=== PATIENT | male | born 1940 | race Caucasian/White ===

== ENCOUNTER 2022-09-12 04:29 | Inpatient (IN) ==
[2022-09-12] MEDS ORDERED: FUROSEMIDE 20 MG/2 ML VIAL IV ONE (04:35)
[2022-09-12] MEDS ORDERED: FUROSEMIDE 40 MG/4 ML VIAL IV ONE (04:39)
[2022-09-12] MEDS ORDERED: NITROGLYCERIN 0.4 MG TAB.SUBL SL PRN (04:39)
--- NOTE | 2022-09-12 04:46 | Emergency Department Note ---
HPI General Chief complaint: Shortness of Breath/Dyspnea Stated complaint: shortness of breath Time Seen by Provider: 09/12/22 04:32 Source: patient Mode of arrival: wheelchair Limitations: no limitations History of Present Illness HPI Narrative: Narrative: 82-year-old male with a mix of COPD and CHF on home O2 reports having 2 dial up his oxygen much more than usual (he is usually on 3 L he had to go up to 5 home. He also has hand-held inhalers and a nebulizer machine but his recreation attendant says they have not been helping him much he states on the other hand that the only time that he can catch his breath. He denies any chest pain fever sweats chills cough but his recreation attendant just came back from traveling [place] and had a respiratory infection. Related Data Home Medications Medication Instructions Recorded Confirmed cholecalciferol (vitamin D3) 25 1,000 unit PO DAILY 11/17/16 09/07/22 mcg (1,000 unit) tablet folic acid 0.8 mg capsule 0.8 mg PO QDAY 11/17/16 09/07/22 multivit with min-folic 1 each PO QDAY 11/17/16 09/07/22 acid-lutein 200 mcg-137.5 mcg chewable tablet warfarin 2 mg tablet 3 mg PO QDAY 11/17/16 09/07/22 carboxymethylcellulose sodium 0.5 1 drp ophthalmic (eye) TID 01/29/17 09/07/22 % eye drops in a dropperette polyethylene glycol 3350 17 17 g PO QAM 01/29/17 09/07/22 gram/dose oral powder warfarin 1 mg tablet 2 mg PO DAILY 02/04/17 09/07/22 albuterol sulfate 2.5 mg/3 mL 2.5 mg inhalation BID PRN COPD 05/12/18 09/07/22 (0.083 %) solution for nebulization atorvastatin 80 mg tablet 40 mg PO QDAY 09/15/18 09/07/22 carvedilol 6.25 mg tablet 6.25 mg PO BID 09/11/19 09/07/22 furosemide 20 mg tablet 20 mg PO QAM 09/11/19 09/07/22 lisinopril 10 mg tablet 5 mg PO QDAY 09/11/19 09/07/22 spironolactone 25 mg tablet 25 mg PO QDAY 01/25/22 09/07/22 Previous Rx's Medication Instructions Recorded tiotropium bromide 18 mcg capsule 1 cap inhalation QDAY COPD #90 07/18/21 with inhalation device (Spiriva puffs with HandiHaler) budesonide-formoterol HFA 160 2 puff inhalation BID #10.2 ea 02/09/22 mcg-4.5 mcg/actuation aerosol inhaler CPT vest airway clearance system #1 ea 05/04/22 and all supplies Allergies Allergy/AdvReac Type Severity Reaction Status Date / Time fluticasone Allergy Unknown Verified 09/07/22 23:39 levofloxacin Allergy Unknown Verified 09/07/22 23:39 Review of Systems ROS ROS Narrative: Narrative: All systems ED: reviewed and negative except as stated. [facility] Narrative Patient History Narrative: Narrative: Medical/Surgical/Family History All Active Problems (Updated 09/08/22 @ 03:00 by Darryl Da Silva DO) Gastroenteritis (Acute) Generalized abdominal fullness (Acute) Difficulty clearing secretions (Chronic) Slow transit constipation (Acute) Unexplained weight loss (Acute) Change in bowel habits (Acute) Chronic abdominal pain (Acute) Vitreoretinal tuft (Chronic) Pseudophakia (Chronic) Other cerebrovascular disease (Chronic) Onychomycosis (Chronic) Mild cognitive impairment (Chronic) Fatigue (Chronic) Dry eyes (Chronic) Expressive language impairment (Chronic) Elevated PSA (Chronic) Actinic keratitis (Chronic) Corneal abrasion, left (Chronic) Ventricular trigeminy (Chronic) Dehydration (Chronic) Hypoxemia (Chronic) Cardiomyopathy, dilated, nonischemic (Chronic) Diabetes mellitus (Chronic) CHF NYHA class III (Chronic) Hearing loss (Chronic) Benign tumor of prostate (Chronic) Abdominal aortic aneurysm (Chronic) Chronic obstructive lung disease (Chronic) Allergic rhinitis (Chronic) Premature ventricular beats (Chronic) Oxygen dependent (Chronic) Edema of lower extremity (Chronic) Dyspnea (Chronic) Heart failure (Chronic) Ischemic stroke (Chronic) Hypotension (Chronic) CVA (cerebral vascular accident) (Chronic) Acute exacerbation of chronic obstructive airways disease (Chronic) Medical History Abdominal aortic aneurysm Actinic keratitis Allergic rhinitis Benign tumor of prostate Cardiomyopathy, dilated, nonischemic CHF NYHA class III Chronic obstructive lung disease COPD (chronic obstructive pulmonary disease) Corneal abrasion, left CVA (cerebral vascular accident) Diabetes mellitus Difficulty clearing secretions Dry eyes Dyspnea at rest Edema of lower extremity Elevated PSA Expressive language impairment Fatigue Hearing loss Heart failure Hypotension Hypoxemia Ischemic stroke Mild cognitive impairment Onychomycosis Other cerebrovascular disease Oxygen dependent Premature ventricular beats Pseudophakia Vitreoretinal tuft Surgical History History of colonoscopy (05/10/07) History of hand surgery Family History Other No pertinent family history Social History Smoking Status: Former smoker Alcohol Intake Frequency: does not drink Substance Use: does not use Exam Narrative Narrative: Narrative: General: Moderate distress secondary to dyspnea. Patient has dilated lungs and is only able to expand like 10% of his lung capacity by deep inspiration. Skin pale but well perfused. Pulmonary: Rales heard bilaterally on both sides with little air exchange no wheezing. General Limitations: no limitations Course Course Course Narrative: Patient's first blood pressure on the monitor was an erroneous reading something like 210/110 and we originally treated him with a nitro sublingual, as a second pressure came back at 120/72 (too soon to have been a result of the nitro). He was given a DuoNeb treatment, and he stated he felt like he was moving more air. VBG showed CO2 retention of 74.9 with a bicarb 37.2 and a base excess of 11, on 4 liters O2. Patient's chest x-ray reveals a chronically hyperinflated lungs, without pulmonary edema. His EKG showed normal sinus rhythm with a rate of 86 and a left bundle branch block unchanged from previous EKGs. His troponin was 0.02, and BNP Pt will be admitted for COPD exacerbation with CO2 retention. Vital Signs Vital signs: Vital Signs Temperature 97.8 F 09/12/22 04:31 Pulse Rate 97 H 09/12/22 04:31 Respiratory Rate 20 09/12/22 04:31 Blood Pressure 132/105 09/12/22 04:31 Pulse Oximetry (%) 99 09/12/22 04:31 Oxygen Delivery Method Nasal Cannula 09/12/22 04:31 Oxygen Flow Rate (L/min) 4 09/12/22 04:31 Temperature 97.8 F 09/12/22 04:31 Pulse Rate 87 09/12/22 05:18 Respiratory Rate 17 09/12/22 05:18 Blood Pressure 117/76 09/12/22 05:18 Pulse Oximetry (%) 100 09/12/22 05:18 Oxygen Delivery Method Nasal Cannula 09/12/22 04:31 Oxygen Flow Rate (L/min) 4 09/12/22 04:31 MDM MDM Narrative Medical decision making narrative: Narrative: Lab Data 09/12/22 04:45 09/12/22 04:44 Labs: Lab Results 09/12/22 09/12/22 09/12/22 Range/Units 04:44 04:45 04:50 POC Hct 36.0 L (41-55) POC PT (11.9-14.5) POC INR (0.8-1.2) POC VBG pH 7.30 L (7.32-7.42) POC VBG pCO2 at Temp 74.9 H* (41-51) POC VBG pO2 26 (25-40) POC VBG HCO3 37.2 H (24-28) POC VBG Total CO2 39.0 H (25-29) POC Venous O2 Sat 38.0 L (40-70) POC VBG Base Excess 11.0 H* (-2-2) VBG Lactic Acid 0.6 (0.5-2) POC Sodium 130 L (133-145) POC Potassium 4.5 (3.3-5.1) POC Chloride 88 L (96-108) POC Total CO2 35.0 H (22-30) POC Anion Gap 12.0 (8.0-16.0) POC BUN 15 (6-20) POC Creatinine 0.9 (0.6-1.2) POC Glucose 104 (70-105) POC WB Ioniz Calcium 1.19 (1.16-1.32) POC Troponin I 0.02 (0.00-0.08) 09/12/22 Range/Units 04:55 POC Hct (41-55) POC PT 23.7 H (11.9-14.5) POC INR 2.0 H (0.8-1.2) POC VBG pH (7.32-7.42) POC VBG pCO2 at Temp (41-51) POC VBG pO2 (25-40) POC VBG HCO3 (24-28) POC VBG Total CO2 (25-29) POC Venous O2 Sat (40-70) POC VBG Base Excess (-2-2) VBG Lactic Acid (0.5-2) POC Sodium (133-145) POC Potassium (3.3-5.1) POC Chloride (96-108) POC Total CO2 (22-30) POC Anion Gap (8.0-16.0) POC BUN (6-20) POC Creatinine (0.6-1.2) POC Glucose (70-105) POC WB Ioniz Calcium (1.16-1.32) POC Troponin I (0.00-0.08) Discharge Plan Patient/Caregiver Discharge Instructions Pt seen by FLAG CAR DRIVER/PA only: No Patient Disposition: Xfer As Inpt ([facility]) Follow up with: Teddy Joya ARNP [Primary Care Provider] - Prescriptions: No Action budesonide-formoterol 160-4.5 mcg/actuation HFA aerosol inhaler 2 puff inhalation BID Qty: 10.2 5RF (DME) CPT vest airway clearance system and all supplies See Rx Instructions .Route .MEDSUPPLY Qty: 1 0RF Rx Instructions: Please provide CPT vest and all required equipment and supplies. Patient needs to use vest at least twice a day for 10 minutes to 30 minutes at a time. Frequencies set at 6-20. Chest circumference was 41 inches. Please provide appropriate sized vest carboxymethylcellulose sodium 0.5 % dropperette 1 drp OPHTHALMIC TID polyethylene glycol 3350 17 gram/dose powder 17 g PO QAM albuterol sulfate 2.5 mg /3 mL (0.083 %) solution for nebulization 2.5 mg INHALATION BID PRN (Reason: COPD) spironolactone 25 mg tablet 25 mg PO QDAY furosemide 20 mg tablet 20 mg PO QAM carvedilol 6.25 mg tablet 6.25 mg PO BID Spiriva with HandiHaler 18 mcg capsule, w/inhalation device 1 cap inhalation QDAY Qty: 90 3RF Rx Instructions: puncture 1 cap using device; one dose = 2 inhalations warfarin 2 MG tablet 3 mg PO QDAY Rx Instructions: 2 mg -, Wednesday and Wednesday. 3mg Wednesday and Wednesday cholecalciferol (vitamin D3) 1,000 UNIT tablet 1,000 unit PO DAILY [id number] acid-lutein 1 EACH tablet,chewable 1 each PO QDAY folic acid 0.8 MG capsule 0.8 mg PO QDAY warfarin 1 MG tablet 2 mg PO DAILY Patient Comments: "2 mg wed,wed. 1 rest of the week" Rx Instructions: 2 mg -, Wednesday and Wednesday. 3mg Wednesday and Wednesday atorvastatin 80 mg tablet 40 mg PO QDAY lisinopril 10 mg tablet 5 mg PO QDAY
[2022-09-12 04:49] LABS: POC Calcium, Ionized 1.19 (1.16-1.32); POC Creatinine 0.9 (0.6-1.2); POC Potassium 4.5 (3.3-5.1)
[2022-09-12] MEDS ORDERED: IPRATROPIUM/ALBUTEROL 3 ML AMPUL.NEB NEB ONE (04:53)
[2022-09-12 05:01] LABS: POC Pro Time 23.7 (11.9-14.5)
[2022-09-12 05:24] LABS: Basophils # (Auto) 0.06 K/mcL (0.00-0.30); Basophils % (Auto) 0.7 % (0.0-2.0); Eosinophils # (Auto) 0.29 K/mcL (0.00-0.70); Eosinophils % (Auto) 3.5 % (0.0-7.0); Hematocrit 35.6 % (40.1-51.0); Lymphocytes # (Auto) 1.02 K/mcL (1.50-4.80); Lymphocytes % (Auto) 12.4 % (15.5-49.0); Mean Cell Volume 97.5 fL (80.0-100.0); Mean Corpuscular HGB Conc 30.9 g/dL (31.0-36.0); Mean Platelet Volume 10.2 fL (8.8-12.5); Monocytes # (Auto) 0.93 K/mcL (0.10-0.90); Monocytes % (Auto) 11.3 % (1.0-12.0); Neutrophils % (Auto) 71.7 % (38.0-78.0); Platelet Count 241 K/mcL (140-440); RBC 3.65 M/mcL (4.63-6.08); Red Cell Distribution Width 13.2 % (11.5-14.5); WBC 8.2 K/mcL (4.5-11.0)
[2022-09-12] MEDS ORDERED: DEXAMETHASONE 10 MG/ML VIAL IV ONE (05:34)
[2022-09-12 06:03] LABS: ALT/SGPT 16 U/L (<40); AST/SGOT 14 U/L (<40); Albumin 3.7 gm/dL (3.2-5.2); Albumin/Globulin Ratio 1.2 (1.0-2.3); Alkaline Phosphatase 116 U/L (39-117); Bilirubin,Total 0.3 mg/dL (0.1-1.0); Blood Urea Nitrogen 15 mg/dL (8-23); Carbon Dioxide 32 mmol/L (22-30); Chloride 92 mmol/L (96-108); Globulin 3.2 gm/dL (2.2-3.7); Glomerular Filtration Rate 84; Glucose 103 mg/dL (70-105); Prolactin 27.3 ng/mL (4.0-15.2); proBNP 327.4 pg/mL (<450.0)
--- NOTE | 2022-09-12 06:42 | XRay Report ---
INDICATION: SOB TECHNIQUE: AP portable semiupright chest x-ray COMPARISON: Previous chest x-rays dated 09/08/2022, 10/21/2021 FINDINGS: Lungs:Findings consistent with emphysema. This patient has a history of COPD. No parenchymal consolidation. No focal infiltrate or mass. Heart, vascular:No significant cardiomegaly. Pulmonary vascularity is normal. No pulmonary edema or pulmonary congestion Mediastinum, radha:No mediastinal widening. No hilar mass Pleura:No pleural fluid. No pleural-based mass or calcification Skeletal:Negative. IMPRESSION: 1. Findings consistent with emphysema 2. No acute or focal abnormality. No interval change Interpreted and Authenticated by: Cam Wyatt 09/12/22
--- NOTE | 2022-09-12 07:05 | Internal Med History&Physical ---
HPI History of Present Illness Patient information: Note initiated : 09/12/22 at 7:00 am Service Date, if different from initiated Date: [] Patient: Ruben Brooks 82 y/o M admitted on for shortness of breath. Chief Complaint: [] History of present illness: Mr. 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 Her caregiver reported that patient was in the ER a week ago for abdominal pain which has since resolved. She reports patient ambulation tolerance has been getting worse due to his end-stage COPD. He could only walk 4-5 steps before getting short of breath. He uses wheelchair to go to the bathroom. Patient nasal cannula oxygen somehow got removed overnight and patient woke up very short of breath this morning and was unable to breathe. Caregiver reported she increase the oxygen to 4 L and patient tried using his inhalers and nebulization machine but it did not help and he presented to ER. He reports no fever or chills however reports greenish sputum which is slightly increased from before. He has mild chronic cough. On presentation patient was in respiratory distress, respiratory rate 20, tachycardia 97, requiring 4 L nasal cannula oxygen, blood pressure stable. CBC with WBC 8.2, hemoglobin 11, platelets 241. VBG showed pH 7.30, PCO2 74 up from 60 few days ago, PO2 26, HCO3 37, sodium 130, potassium 4.5, creatinine 0.9. Chest x-ray obtained showed chronically hyperinflated emphysematous lungs without evidence of pneumonia. EKG showed sinus rhythm with occasional PVC, no acute ST-T wave changes. Troponin negative. proBNP 327 down from 588 few days ago. Review of system 14 point review of system obtained was negative except mentioned above Physical examination Alert, on BiPAP, in no acute distress Normocephalic, atraumatic PERRLA, EOMI Poor air entry bilaterally, not moving much air, on BiPAP, satting well S1 and S2, RRR, no murmurs heard, no JVD, no peripheral edema Abdomen is soft and nontender Alert and oriented, mild paresthesia of right upper extremity, strength appears to be 5/5 in both upper and lower extremities and symmetrical Appropriate mood and affect Assessment and plan Acute on chronic hypoxic hypercapnic respiratory failure with PCO2 of 74. Patient on BiPAP and feeling better. Continue IV Solu-Medrol, DuoNebs, budesonide, pulmonary toileting Acute exacerbation of COPD. Patient nasal cannula oxygen got removed overnight. Managed with IV steroids, nebulization therapy. Chest x-ray without evidence of pneumonia Combined systolic and diastolic CHF exacerbation. Mild exacerbation. We will continue with home dose treatment. Dilated cardiomyopathy EF 25-30%. Continue with Coreg, Lasix, spironolactone, warfarin. 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 History of CVA with right-sided paresthesia. Continue antiplatelet therapy. Stable Chronic anticoagulation, monitor INR Prostate cancer status postradiation, stable Diabetes mellitus 2 Will obtain A1c, patient not on any diabetic medication Mild cognitive impairment, stable DVT prophylaxis, on warfarin CODE STATUS. Patient wishes to be DNR/DNI Critical care [facility] All Active Problems (Updated 09/12/22 @ 06:05 by Pravin Pedersen MD) Gastroenteritis (Acute) Generalized abdominal fullness (Acute) Acute exacerbation of chronic obstructive pulmonary disease (Acute) CO2 retention (Acute) Difficulty clearing secretions (Chronic) Slow transit constipation (Acute) Unexplained weight loss (Acute) Change in bowel habits (Acute) Chronic abdominal pain (Acute) Vitreoretinal tuft (Chronic) Pseudophakia (Chronic) Other cerebrovascular disease (Chronic) Onychomycosis (Chronic) Mild cognitive impairment (Chronic) Fatigue (Chronic) Dry eyes (Chronic) Expressive language impairment (Chronic) Elevated PSA (Chronic) Actinic keratitis (Chronic) Corneal abrasion, left (Chronic) Ventricular trigeminy (Chronic) Dehydration (Chronic) Hypoxemia (Chronic) Cardiomyopathy, dilated, nonischemic (Chronic) Diabetes mellitus (Chronic) CHF NYHA class III (Chronic) Hearing loss (Chronic) Benign tumor of prostate (Chronic) Abdominal aortic aneurysm (Chronic) Chronic obstructive lung disease (Chronic) Allergic rhinitis (Chronic) Premature ventricular beats (Chronic) Oxygen dependent (Chronic) Edema of lower extremity (Chronic) Dyspnea (Chronic) Heart failure (Chronic) Ischemic stroke (Chronic) Hypotension (Chronic) CVA (cerebral vascular accident) (Chronic) Acute exacerbation of chronic obstructive airways disease (Chronic) Medical History Abdominal aortic aneurysm Actinic keratitis Allergic rhinitis Benign tumor of prostate Cardiomyopathy, dilated, nonischemic CHF NYHA class III Chronic obstructive lung disease COPD (chronic obstructive pulmonary disease) Corneal abrasion, left CVA (cerebral vascular accident) Diabetes mellitus Difficulty clearing secretions Dry eyes Dyspnea at rest Edema of lower extremity Elevated PSA Expressive language impairment Fatigue Hearing loss Heart failure Hypotension Hypoxemia Ischemic stroke Mild cognitive impairment Onychomycosis Other cerebrovascular disease Oxygen dependent Premature ventricular beats Pseudophakia Vitreoretinal tuft Surgical History History of colonoscopy (05/10/07) History of hand surgery Family History Other No pertinent family history Social History marital status: single occupational status: retired smoking status: Former smoker quit date: 04/05/96 pack-years: 30 alcohol intake frequency: does not drink substance use type: does not use MEDS/ALLERGIES Home Medications and Allergies Home Medications Medication Instructions Recorded Confirmed Type cholecalciferol (vitamin D3) 25 1,000 unit PO DAILY 11/17/16 09/07/22 History mcg (1,000 unit) tablet folic acid 0.8 mg capsule 0.8 mg PO QDAY 11/17/16 09/07/22 History multivit with min-folic 1 each PO QDAY 11/17/16 09/07/22 History acid-lutein 200 mcg-137.5 mcg chewable tablet warfarin 2 mg tablet 3 mg PO QDAY 11/17/16 09/07/22 History carboxymethylcellulose sodium 0.5 1 drp ophthalmic (eye) TID 01/29/17 09/07/22 History % eye drops in a dropperette polyethylene glycol 3350 17 17 g PO QAM 01/29/17 09/07/22 History gram/dose oral powder warfarin 1 mg tablet 2 mg PO DAILY 02/04/17 09/07/22 History albuterol sulfate 2.5 mg/3 mL 2.5 mg inhalation BID PRN COPD 05/12/18 09/07/22 History (0.083 %) solution for nebulization atorvastatin 80 mg tablet 40 mg PO QDAY 09/15/18 09/07/22 History carvedilol 6.25 mg tablet 6.25 mg PO BID 09/11/19 09/07/22 History furosemide 20 mg tablet 20 mg PO QAM 09/11/19 09/07/22 History lisinopril 10 mg tablet 5 mg PO QDAY 09/11/19 09/07/22 History tiotropium bromide 18 mcg capsule 1 cap inhalation QDAY COPD #90 07/18/21 09/07/22 Rx with inhalation device (Spiriva puffs with HandiHaler) spironolactone 25 mg tablet 25 mg PO QDAY 01/25/22 09/07/22 History budesonide-formoterol HFA 160 2 puff inhalation BID #10.2 ea 02/09/22 09/07/22 Rx mcg-4.5 mcg/actuation aerosol inhaler CPT vest airway clearance system #1 ea 05/04/22 06/22/22 Rx and all supplies Allergies Allergy/AdvReac Type Severity Reaction Status Date / Time fluticasone Allergy Unknown Verified 09/07/22 23:39 levofloxacin Allergy Unknown Verified 09/07/22 23:39 EXAM Constitutional Vitals: Temp Pulse Resp BP Pulse Ox O2 Del Method O2 Flow Rate 97.8 F 80 19 101/64 96 BiPAP 30 09/12/22 04:31 09/12/22 06:37 09/12/22 06:37 09/12/22 06:35 09/12/22 06:37 09/12/22 06:37 09/12/22 06:37 DATA Data Completed and Pending Labs: Labs from last 24 hours 09/12/22 09/12/22 09/12/22 04:55 04:50 04:45 WBC RBC Hgb Hct POC Hct MCV MCH MCHC RDW Plt Count MPV Immature Gran % (Auto) Neut % (Auto) Lymph % (Auto) Crowley % (Auto) Eos % (Auto) Baso % (Auto) Lymph # (Auto) Crowley # (Auto) Eos # (Auto) Baso # (Auto) Immature Gran # Absolute Neutrophils POC PT 23.7 H POC INR 2.0 H POC VBG pH 7.30 L POC VBG pCO2 at Temp 74.9 H* POC VBG pO2 26 POC VBG HCO3 37.2 H POC VBG Total CO2 39.0 H POC Venous O2 Sat 38.0 L POC VBG Base Excess 11.0 H* VBG Lactic Acid 0.6 POC Sodium Sodium POC Potassium Potassium POC Chloride Chloride Carbon Dioxide POC Total CO2 Anion Gap POC Anion Gap POC BUN BUN Creatinine POC Creatinine GFR Calculation Glucose POC Glucose Calcium POC WB Ioniz Calcium Total Bilirubin AST ALT Alkaline Phosphatase NT-Pro-B Natriuret Pep Total Protein Albumin Globulin Albumin/Globulin Ratio Prolactin POC Troponin I 0.02 09/12/22 09/12/22 09/12/22 04:45 04:44 04:44 WBC 8.2 RBC 3.65 L Hgb 11.0 L Hct 35.6 L POC Hct 36.0 L MCV 97.5 MCH 30.1 MCHC 30.9 L RDW 13.2 Plt Count 241 MPV 10.2 Immature Gran % (Auto) 0.4 Neut % (Auto) 71.7 Lymph % (Auto) 12.4 L Crowley % (Auto) 11.3 Eos % (Auto) 3.5 Baso % (Auto) 0.7 Lymph # (Auto) 1.02 L Crowley # (Auto) 0.93 H Eos # (Auto) 0.29 Baso # (Auto) 0.06 Immature Gran # 0.03 Absolute Neutrophils 5.88 POC PT POC INR POC VBG pH POC VBG pCO2 at Temp POC VBG pO2 POC VBG HCO3 POC VBG Total CO2 POC Venous O2 Sat POC VBG Base Excess VBG Lactic Acid POC Sodium 130 L Sodium 130 L POC Potassium 4.5 Potassium 4.6 POC Chloride 88 L Chloride 92 L Carbon Dioxide 32 H POC Total CO2 35.0 H Anion Gap 6.0 L POC Anion Gap 12.0 POC BUN 15 BUN 15 Creatinine 0.8 POC Creatinine 0.9 GFR Calculation 84 Glucose 103 POC Glucose 104 Calcium 9.0 POC WB Ioniz Calcium 1.19 Total Bilirubin 0.3 AST 14 ALT 16 Alkaline Phosphatase 116 NT-Pro-B Natriuret Pep 327.4 Total Protein 6.9 Albumin 3.7 Globulin 3.2 Albumin/Globulin Ratio 1.2 Prolactin 27.3 H POC Troponin I A/P Time Spent With Patient Time: Total time spent is greater than 50% in coordination of care (as documented) at patient's floor/unit and/or counseling patient:
[2022-09-12 08:18] LABS: Estimated Average Glucose(eAG) 111 mg/dL; Hemoglobin A1C 5.5 % Hgb (4.0-6.0)
[2022-09-12] MEDS ORDERED: LACTULOSE 20 GM/30 ML ORAL.SOL PO PRN (08:58)
[2022-09-12] MEDS ORDERED: ONDANSETRON 4 MG/2 ML VIAL IV PRN (08:58)
[2022-09-12] MEDS ORDERED: ACETAMINOPHEN 325 MG TABLET PO PRN (08:58)
[2022-09-12] MEDS ORDERED: SENNOSIDES 1 TABLET PO PRN (08:58)
[2022-09-12] MEDS ORDERED: BISACODYL 5 MG TABLET PO PRN (08:58)
[2022-09-12] MEDS ORDERED: WARFARIN 1 MG TABLET PO SCH (09:00)
[2022-09-12] MEDS: BUDESONIDE 0.5 MG/2 ML AMPUL.NEB NEB SCH ×2 (09:53→19:56)
[2022-09-12] MEDS: IPRATROPIUM/ALBUTEROL 3 ML AMPUL.NEB NEB SCH ×3 (09:53→19:56)
[2022-09-12] MEDS: FOLIC ACID 1 MG TABLET PO SCH (10:28)
[2022-09-12] MEDS: VITAMIN D3 25 MCG TABLET PO SCH (10:28)
[2022-09-12] MEDS: ATORVASTATIN 40 MG TABLET PO SCH (10:28)
[2022-09-12] MEDS: SPIRONOLACTONE 25 MG TABLET PO SCH (10:28)
[2022-09-12] MEDS: MULTIVIT,THER IRON,CA,FA & MIN 1 TABLET PO SCH (10:28)
[2022-09-12] MEDS: FUROSEMIDE 20 MG TABLET PO SCH (10:28)
[2022-09-12] MEDS: methylPREDNISolone SOD SUCC 40 MG/ML VIAL IV SCH ×2 (10:28→21:03)
[2022-09-12] MEDS: LISINOPRIL 5 MG TABLET PO SCH (10:29)
[2022-09-12] MEDS: CARVEDILOL 6.25 MG TABLET PO SCH ×2 (10:30→18:08)
[2022-09-12] MEDS ORDERED: WARFARIN 2 MG TABLET PO ONE ×2 (14:00→16:00)
[2022-09-12] MEDS: 0.9 % SODIUM CHLORIDE 10 ML SYRINGE IV SCH ×3 (15:20→21:05)
[2022-09-12] MEDS: CARBOXYMETHYLCELLULOSE SODIUM 1 EACH DROPER.GEL OU SCH ×2 (16:17→21:04)
[2022-09-13] MEDS: IPRATROPIUM/ALBUTEROL 3 ML AMPUL.NEB NEB SCH ×3 (01:43→13:14)
[2022-09-13] MEDS: 0.9 % SODIUM CHLORIDE 10 ML SYRINGE IV SCH ×3 (05:20→14:59)
[2022-09-13 07:24] LABS: Basophils # (Auto) 0.01 K/mcL (0.00-0.30); Basophils % (Auto) 0.1 % (0.0-2.0); Eosinophils # (Auto) 0 K/mcL (0.00-0.70); Eosinophils % (Auto) 0 % (0.0-7.0); Hematocrit 33.2 % (40.1-51.0); Hemoglobin 10.7 g/dL (13.7-17.5); Lymphocytes # (Auto) 0.43 K/mcL (1.50-4.80); Lymphocytes % (Auto) 3.9 % (15.5-49.0); Mean Cell Volume 94.9 fL (80.0-100.0); Mean Corpuscular HGB Conc 32.2 g/dL (31.0-36.0); Mean Platelet Volume 10.1 fL (8.8-12.5); Monocytes # (Auto) 0.36 K/mcL (0.10-0.90); Monocytes % (Auto) 3.3 % (1.0-12.0); Neutrophils % (Auto) 92.1 % (38.0-78.0); Platelet Count 228 K/mcL (140-440); WBC 10.9 K/mcL (4.5-11.0)
[2022-09-13 07:32] LABS: INR 2.6 (0.9-1.1); Prothrombin Time 28.4 sec (11.9-14.5)
[2022-09-13 08:00] LABS: Blood Urea Nitrogen 20 mg/dL (8-23); Calcium 8.7 mg/dL (8.6-10.4); Carbon Dioxide 30 mmol/L (22-30); Chloride 89 mmol/L (96-108); Glomerular Filtration Rate 84; Glucose 163 mg/dL (70-105)
[2022-09-13] MEDS: MULTIVIT,THER IRON,CA,FA & MIN 1 TABLET PO SCH (08:20)
[2022-09-13] MEDS: FUROSEMIDE 20 MG TABLET PO SCH (08:21)
[2022-09-13] MEDS: LISINOPRIL 5 MG TABLET PO SCH (08:21)
[2022-09-13] MEDS: VITAMIN D3 25 MCG TABLET PO SCH (08:21)
[2022-09-13] MEDS: CARVEDILOL 6.25 MG TABLET PO SCH (08:21)
[2022-09-13] MEDS: SPIRONOLACTONE 25 MG TABLET PO SCH (08:21)
[2022-09-13] MEDS: FOLIC ACID 1 MG TABLET PO SCH (08:21)
[2022-09-13] MEDS: ATORVASTATIN 40 MG TABLET PO SCH (08:21)
[2022-09-13] MEDS: POLYETHYLENE GLYCOL 3350 17 GM PACKET PO SCH ×2 (08:22→09:00)
[2022-09-13] MEDS: methylPREDNISolone SOD SUCC 40 MG/ML VIAL IV SCH (08:22)
[2022-09-13] MEDS: CARBOXYMETHYLCELLULOSE SODIUM 1 EACH DROPER.GEL OU SCH (08:23)
[2022-09-13] MEDS: BUDESONIDE 0.5 MG/2 ML AMPUL.NEB NEB SCH (10:06)
--- NOTE | 2022-09-13 11:58 | Discharge Summary ---
Discharge Provider Provider IMPORTANT FOLLOW-UP INFORMATION FOR PCP: Patient information: Note initiated : 09/13/22 at 11:55 am Service Date, if different from initiated Date: [] Patient: Ruben Brooks 82 y/o M admitted on 09/12/22 for shortness of breath. Chief Complaint: [] Date of admission: 09/12/22 08:32 Discharge date: 09/13/22 Primary care physician: Teddy Joya Consults: 09/12/22 Consult to Physician [CONS] Stat Comment: Consulting Provider: Cody Vernon Reason For Exam: Physician to Consult COURSE Hospital Course Hospital course: Mr. 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 Her caregiver reported that patient was in the ER a week ago for abdominal pain which has since resolved. She reports patient ambulation tolerance has been getting worse due to his end-stage COPD. He could only walk 4-5 steps before getting short of breath. He uses wheelchair to go to the bathroom. Patient nasal cannula oxygen somehow got removed overnight and patient woke up very short of breath this morning and was unable to breathe. Caregiver reported she increase the oxygen to 4 L and patient tried using his inhalers and nebulization machine but it did not help and he presented to ER. He reports no fever or chills however reports greenish sputum which is slightly increased from before. He has mild chronic cough. On presentation patient was in respiratory distress, respiratory rate 20, tachycardia 97, requiring 4 L nasal cannula oxygen, blood pressure stable. CBC with WBC 8.2, hemoglobin 11, platelets 241. VBG showed pH 7.30, PCO2 74 up from 60 few days ago, PO2 26, HCO3 37, sodium 130, potassium 4.5, creatinine 0.9. Chest x-ray obtained showed chronically hyperinflated emphysematous lungs without evidence of pneumonia. EKG showed sinus rhythm with occasional PVC, no acute ST-T wave changes. Troponin negative. proBNP 327 down from 588 few days ago. 09/13 feels breathing has significantly improved. On 2 L nasal cannula oxygen which is his baseline. ABG showed significant improvement in hypercapnia PCO2 down to 52. Patient is alert and oriented. He feels he is close to baseline. Patient and would like patient to be discharged. Patient will be transition to p.o. prednisone, PPI for GI prophylaxis since patient is also on warfarin Physical examination Alert, awake, sitting up, no acute distress Normocephalic, atraumatic PERRLA, EOMI Still poor air entry bilaterally but improved from before, on 2 L nasal cannula oxygen which is his baseline S1 and S2, RRR, no murmurs heard, no JVD, no peripheral edema Abdomen is soft and nontender Alert and oriented, mild paresthesia of right upper extremity, strength appears to be 5/5 in both upper and lower extremities and symmetrical Appropriate mood and affect Discharge diagnoses Acute on chronic hypoxic hypercapnic respiratory failure with PCO2 of 74. Received BiPAP and PCO2 down to 52. Acute exacerbation of COPD. Patient nasal cannula oxygen got removed overnight.Chest x-ray without evidence of pneumonia. Patient patient received IV Solu-Medrol, DuoNebs, budesonide. Feeling back to baseline on 2 L nasal cannula oxygen. Will transition to p.o. prednisone 60 mg to complete 7-day course. Combined systolic and diastolic CHF exacerbation. Mild exacerbation. continue with home dose treatment. Dilated cardiomyopathy EF 25-30%. Continue with Coreg, Lasix, spironolactone, warfarin. INR within range Hypertension, continue home dose Hyperlipidemia, continue statin Infrarenal AAA 5.6 cm with mural thrombus, patient on warfarin. History of CVA with right-sided paresthesia. Continue antiplatelet therapy. Stable Chronic anticoagulation, monitor INR Prostate cancer status postradiation, stable Diabetes mellitus 2 HbA1c 5.5 in nondiabetic range. patient not on any diabetic medication Mild cognitive impairment, stable DVT prophylaxis, on warfarin CODE STATUS. Patient wishes to be DNR/DNI Discharge diagnosis: COPD exacerbation, acute respiratory failure Time Spent with Patient Time attestation: Total time spent providing and/or coordinating discharge services: Time spent: Greater than 30 minutes EXAM Constitutional Vitals: Temp Pulse Resp BP Pulse Ox O2 Del Method O2 Flow Rate 97.6 F 90 11 L 131/73 99 Nasal Cannula 2 09/13/22 04:01 09/13/22 06:01 09/13/22 10:07 09/13/22 10:01 09/13/22 06:01 09/13/22 07:59 09/13/22 06:01 Discharge Data Data Completed and Pending Labs on day of discharge: Labs from last 24 hours 09/13/22 09/13/22 09/13/22 07:42 05:21 05:21 WBC RBC Hgb Hct MCV MCH MCHC RDW Plt Count MPV Immature Gran % (Auto) Neut % (Auto) Lymph % (Auto) [place] % (Auto) Eos % (Auto) Baso % (Auto) Lymph # (Auto) [place] # (Auto) Eos # (Auto) Baso # (Auto) Immature Gran # Absolute Neutrophils PT 28.4 H INR 2.6 H POC pH 7.39 POC pCO2 52.5 H* POC pO2 112 H POC HCO3 31.8 H POC Total CO2 33.0 H POC ABG Base Excess 7.0 H ABG Lactic Acid 1.8 Hgb O2 Saturation 98.0 H Sodium 125 L Potassium 4.6 Chloride 89 L Carbon Dioxide 30 Anion Gap 6.0 L BUN 20 Creatinine 0.8 GFR Calculation 84 Glucose 163 H Calcium 8.7 09/13/22 05:21 WBC 10.9 RBC 3.50 L Hgb 10.7 L Hct 33.2 L MCV 94.9 MCH 30.6 MCHC 32.2 RDW 13.0 Plt Count 228 MPV 10.1 Immature Gran % (Auto) 0.6 H Neut % (Auto) 92.1 H Lymph % (Auto) 3.9 L [place] % (Auto) 3.3 Eos % (Auto) 0 Baso % (Auto) 0.1 Lymph # (Auto) 0.43 L [place] # (Auto) 0.36 Eos # (Auto) 0 Baso # (Auto) 0.01 Immature Gran # 0.07 H Absolute Neutrophils 10.04 H PT INR POC pH POC pCO2 POC pO2 POC HCO3 POC Total CO2 POC ABG Base Excess ABG Lactic Acid Hgb O2 Saturation Sodium Potassium Chloride Carbon Dioxide Anion Gap BUN Creatinine GFR Calculation Glucose Calcium Discharge Plan Patient/Caregiver Discharge Instructions Activity: ambulate only with your cane Diet: Cardiac Instructions: Pulmonary Fibrosis (GEN) Prescriptions: New prednisone 20 mg tablet 60 mg PO QDAY Qty: 18 0RF pantoprazole [Protonix] 40 mg tablet,delayed release (DR/EC) 40 mg PO QDAY Qty: 14 0RF Continued budesonide-formoterol 160-4.5 mcg/actuation HFA aerosol inhaler 2 puff inhalation BID Qty: 10.2 5RF (DME) CPT vest airway clearance system and all supplies See Rx Instructions .Route .MEDSUPPLY Qty: 1 0RF Rx Instructions: Please provide CPT vest and all required equipment and supplies. Patient needs to use vest at least twice a day for 10 minutes to 30 minutes at a time. Frequencies set at 6-20. Chest circumference was 41 inches. Please provide appropriate sized vest carboxymethylcellulose sodium 0.5 % dropperette 1 drp OPHTHALMIC TID polyethylene glycol 3350 17 gram/dose powder 17 g PO QAM albuterol sulfate 2.5 mg /3 mL (0.083 %) solution for nebulization 2.5 mg INHALATION BID PRN (Reason: COPD) Patient Comments: 2 puff in am 2 puff at night; machine spironolactone 25 mg tablet 25 mg PO QDAY furosemide 20 mg tablet 20 mg PO QAM carvedilol 6.25 mg tablet 6.25 mg PO BID Spiriva with HandiHaler 18 mcg capsule, w/inhalation device 1 cap inhalation QDAY Qty: 90 3RF Rx Instructions: puncture 1 cap using device; one dose = 2 inhalations warfarin 2 MG tablet See Rx Instructions .ROUTE .COMPLEX Rx Instructions: 2 mg orally ;2 mg Wednesday through Wednesday steadily. On Wednesday and Wednesday the patient takes an additional 1 mg(1/2 tab) of warfarin for a total of 3 mg of warfarin on those days. Wednesday and Wednesday(3 mg). Wednesday, Wed, , Sat, Sun (2 mg); patient takes at night cholecalciferol (vitamin D3) 1,000 UNIT tablet 1,000 unit PO DAILY [id number] acid-lutein 1 EACH tablet,chewable 1 each PO QDAY folic acid 0.8 MG capsule 0.8 mg PO QDAY atorvastatin 80 mg tablet 40 mg PO QDAY lisinopril 10 mg tablet 5 mg PO QDAY Mucinex 1,200 mg Tablet Extended Release 12hr 1,200 mg PO BID Follow Up Plan Follow up with: Teddy Joya ARNP [Primary Care Provider] - Patient Disposition: Home, Self-Care Overall status at discharge: patient is progressing back to baseline Discharge Orders: Discharge Order (Routine); Ordered 09/13/22 Ordered By: Cody Vernon
[2022-09-13] MEDS ORDERED: BENZOCAINE/MENTHOL 1 LOZENGE PO PRN (13:02)
[2022-09-13] MEDS ORDERED: BENZOCAINE/MENTHOL 1 LOZENGE PO ONE (13:07)
[2022-09-13] MEDS ORDERED: WARFARIN 1 MG TABLET PO SCH (14:00)
--- NOTE | 2022-09-14 08:04 | EKG ---
[facility] Test Date: 2022-09-12 Pat Name: Ruben Brooks Department: ED Room: Gender: Male [employer] Specialist: MILTON : 1940 Requested By: Pravin Pedersen Order Number: [id number] Reading MD: Cam Perdomo M.D. Measurements Intervals [place] Rate: 86 P: 78 WI: 222 QRS: -36 QRSD: 128 T: 74 QT: 353 QTc: 423 Interpretive Statements Sinus rhythm Ventricular premature complex Borderline prolonged [place] interval Left bundle branch block Electronically Signed On 09-14-2022 8:04:00 PDT by Cam Perdomo M.D. /[id number]
== END 2022-09-13 14:45 | disposition home or self-care (01) | DRG 189 ==
LOC: ED 04:29 → ICU 08:32
PROVIDERS: ADMIT Internal Medicine; ATTEND Internal Medicine